=== PATIENT | female | born 1985 | race Caucasian/White ===

== ENCOUNTER 2021-02-27 10:09 | Outpatient (REF) | payer BC, SELFPAY ==
[2021-02-27 15:04] LABS: Influenza A PCR NEGATIVE (Negative); Influenza B PCR NEGATIVE (Negative); Resp Syncy Virus RNA Qual PCR NEGATIVE (Negative); SARS COV2 PCR INHOUSE POSITIVE (Negative)
== END 2021-02-27 10:10 | disposition home or self-care (01) ==
LOC: HO.LAB 10:09
PROVIDERS: Visit Provider Family Medicine
DX: Z20.822 Contact with and (suspected) exposure to COVID-19 (principal)
CPT/HCPCS: 0241U

== ENCOUNTER 2023-03-30 15:43 | Emergency (ER) | payer BC, SELFPAY ==
--- NOTE | 2023-03-30 16:02 | ED.SKABFB ---
HPI - Skin/Abscess/Foreign Bdy General Chief complaint: Skin/Abscess/Foreign Body Stated complaint: rash all over body, itchy Time Seen by Provider: 03/30/23 22:43 Source: patient Mode of arrival: ambulatory History of Present Illness HPI narrative: 38-year-old female presents with concerns regarding a rash that started last Thursday and then notes that she was diagnosed with COVID-19 on Thursday. She otherwise feels fine but states that she is noticed that the rash has extended across her trunk/breast area to include neck and a few areas on her upper extremities. She was seen earlier today and informed that she may have scabies and was given a prescription for permethrin. Related Data Allergies Allergy/AdvReac Type Severity Reaction Status Date / Time cashew nut Allergy Anaphylaxis Verified 03/30/23 16:13 Review of Systems Review of Systems: Pertinent positives and negatives as stated in HPI PMFSH Past Medical History Source: nursing notes reviewed Social History Social History Advance Directives: No Advance Directives Information Provided: No Physical Exam Vital Signs: Vital Signs: Last Vital Signs Temp 97.6 F 03/30/23 16:13 Pulse 72 03/30/23 16:13 Resp 16 03/30/23 16:13 BP 126/65 03/30/23 16:13 Pulse Ox 99 03/30/23 16:13 O2 Del Method Room Air 03/30/23 16:13 BMI result Body Mass Index 33.1 VITAL SIGNS: Reviewed. GENERAL: Well developed, well nourished, in no acute distress. HEAD: Normocephalic/atraumatic EYES: PERRLA, EOMI EARS: Ext canals without abnormality NOSE: Nares patent bilateral OROPHARYNX: no oral lesions noted, posterior pharynx clear NECK: Supple, no adenopathy LUNGS: Normal breath sounds. No adventitious sounds or accessory muscle use. SpO2<99> CARDIOVASCULAR: Regular rate and rhythm without noted murmurs ABDOMEN: Soft, non-tender, non-distended with bowel sounds. MUSCULOSKELETAL: No tenderness, deformities, or effusions noted on gross inspection. EXTREMITIES: No cyanosis, clubbing or edema. SKIN: Inspection of the skin reveals small red/raised, no circumferential erythema, no umbilication, does not appear to be insect induced, minimal involvement bilateral upper extremities NEUROLOGIC: Alert and oriented x 4. Strength and sensation to light touch were grossly intact x 4. Course Course Course Narrative: RME:?38 yo female here for eval of diffuse pruritic body rash x7 days. saw PCP 7 days ago for possible allergic rxn, tested positive for COVID, started on hydoxyzine, benadryl, and hydrocortisone cream. Rash began as a small patch on her abdomen, has persisted, now extending to her breasts and back. Denies fever. Denies travel outside the [place] Up-to-date on all vaccinations. PE: small erythematous papules on torso and upper extremities with ?herald patch to right abdomen. ? Pityriasis rosea labs ordered in triage. Full HPI, ROS and PE to be performed by the primary ED provider. Medical Decision Making Medical Decision Making MDM Narrative: 38-year-old female with history and clinical presentation, DDX: Suspect viral exanthem, findings and progression in consistent with scabies/impetigo/contact dermatitis. I reviewed all investigations and hematologic indices do not demonstrated leukocytosis or left shift, there is no anemia or thrombocytopenia. Chemistry indices do not demonstrate any PRANAY or electrolyte derangements. A tick panel has been sent and should be followed up by the primary care doctor, patient does not provide any history to me to suggest a tick-borne illness. I reassured the patient informed her that it was my interpretation that she had a viral exanthem, she describes minimal pruritus and denies any new exposures. She is otherwise discharged. Differential Diagnosis Differential Diagnoses: The differential diagnosis associated with the presentation includes Please see the discussion above Admission/Observation Consideration of admission/observation: Escalation of care including admission/observation considered Please see the discussion above Lab Data [facility] Lab Attestation statement: I reviewed the patient's lab results. Please see the discussion above 03/30/23 16:32 03/30/23 16:32 Labs: Lab Results 03/30/23 Range/Units 16:32 WBC 4.7 L (4.8-10.8) X10*3/uL RBC 4.11 L (4.20-5.50) X10*6/uL Hgb 12.4 (12.0-16.0) g/dl Hct 36.8 L (37.0-47.0) % MCV 89.5 (80.0-98.0) fL MCH 30.2 (27.0-33.0) pg MCHC 33.7 (31.0-35.0) g/dl RDW 12.2 (11.0-16.0) % Plt Count 237 (160-400) X10*3/uL MPV 10.3 (9.4-12.3) fL Immature Gran % (Auto) 0.2 (0.0-0.4) % Neut % (Auto) 56.9 (45-73) % Lymph % (Auto) 35.9 (20-40) % [place] % (Auto) 5.5 (2-11) % Eos % (Auto) 1.3 (0-4) % Baso % (Auto) 0.2 (0-2) % Lymph # (Auto) 1.7 (1.2-4.9) X10*3/uL [place] # (Auto) 0.3 (0.1-1.2) X10*3/uL Eos # (Auto) 0.1 (0.0-0.4) X10*3/uL Baso # (Auto) 0.0 (0.0-0.2) X10*3/uL Abs Immat Gran (auto) 0.01 (0.00-0.03) X10*3/uL Absolute Neuts (auto) 2.7 (2.0-8.3) x10*3/uL Absolute Nucleated RBC 0.000 (0.0-0.012) X10*3/uL Nucleated RBC % (auto) 0.0 (0.0-0.2) /100WBC Sodium 141 (135-145) mmol/L Potassium 3.7 (3.3-5.1) mmol/L Chloride 107 (96-108) mmol/L Carbon Dioxide 24 (22-29) mmol/L Anion Gap 14 (12-20) BUN 12 (9-16) mg/dL Creatinine 0.70 (0.5-1.4) mg/dL Estim Creat Clear Calc 109.3 Estimated GFR > 60 Random Glucose 128 H (60-115) mg/dL Calcium 9.4 (8.4-10.2) mg/dL Magnesium 2.1 (1.6-2.6) mg/dL Discharge Plan Discharge Clinical Impression: Viral exanthem Patient Disposition: Home, Self-Care Instructions: Viral Exanthem (ED) Additional Instructions: Recommend the continued use of the hydroxyzine at your discretion. Return to the ER if you were to develop significant worsening of the rash with associated itching, fever, chills. Referrals: José Miguel Mcnulty MD [Primary Care Provider] -
[2023-03-30 16:13] VITALS: BP 126/65; PULSE 72; RESP 16; TEMP 36.4; O2SAT 99; BMI 33.1
[2023-03-30 16:36] LABS: MANUAL DIFF FLAG NO
[2023-03-30 16:43] LABS: Basophils Percent Auto 0.2 % (0-2); Eosinophils Absolute Auto 0.1 X10*3/uL (0.0-0.4); Eosinophils Percent Auto 1.3 % (0-4); Hematocrit 36.8 % (37.0-47.0); Hemoglobin 12.4 g/dl (12.0-16.0); Imm Gran Abs Auto 0.01 X10*3/uL (0.00-0.03); Imm Gran Pct Auto 0.2 % (0.0-0.4); Lymphocytes Absolute Auto 1.7 X10*3/uL (1.2-4.9); Lymphocytes Percent Auto 35.9 % (20-40); Mean Corpuscular HGB Conc 33.7 g/dl (31.0-35.0); Mean Corpuscular Hemoglobin 30.2 pg (27.0-33.0); Mean Corpuscular Volume 89.5 fL (80.0-98.0); Mean Platelet Volume 10.3 fL (9.4-12.3); Monocytes Absolute Auto 0.3 X10*3/uL (0.1-1.2); Monocytes Percent Auto 5.5 % (2-11); Neutrophils Absolute Auto 2.7 x10*3/uL (2.0-8.3); Neutrophils Percent Auto 56.9 % (45-73); Platelet Count 237 X10*3/uL (160-400); Red Blood Count 4.11 X10*6/uL (4.20-5.50); Red Cell Distribution Width 12.2 % (11.0-16.0); White Blood Count 4.7 X10*3/uL (4.8-10.8)
[2023-03-30 16:51] LABS: Anion Gap 14 (12-20); Blood Urea Nitrogen 12 mg/dL (9-16); Calcium 9.4 mg/dL (8.4-10.2); Carbon Dioxide 24 mmol/L (22-29); Chloride 107 mmol/L (96-108); Creatinine Clr Calc Pharmacy 109.3; Estimated Glomerular Filt Rate > 60; Glucose Random 128 mg/dL (60-115); Magnesium 2.1 mg/dL (1.6-2.6); Potassium 3.7 mmol/L (3.3-5.1); Sodium 141 mmol/L (135-145)
[2023-04-01 16:23] LABS: Lyme Abs Screen <0.90 index
[2023-04-02 22:48] LABS: A. Phagocytphilium DNA,RT-PCR NOT DETECTED (NOT DETECTED); Babesia Microti DNA, RT-PCR NOT DETECTED (NOT DETECTED); Borrelia Miyamotoi,DNA RT-PCR NOT DETECTED (NOT DETECTED); E.Chaffeensis DNA RT-PCR NOT DETECTED (NOT DETECTED); Lyme(Borrelia ssp)DNA RT-PCR NOT DETECTED (NOT DETECTED)
== END 2023-03-30 23:58 | disposition home or self-care (01) ==
PROVIDERS: Physician Assistant Medical; Emergency Provider Student in an Organized Health Care Education/Training Program; PCP Internal Medicine
DX: B09 Unspecified viral infection characterized by skin and mucous membrane lesions (principal); R21 Rash and other nonspecific skin eruption; Z86.16 Personal history of COVID-19
CPT/HCPCS: 36415; 80048; 83735; 85025; 86617; 86618; 87468; 87469; 87478; 87484; 87798; 99282; 99283

== ENCOUNTER 2024-12-24 15:48 | Emergency (ER) | payer BC, SELFPAY ==
[2024-12-24 16:11] VITALS: BP 128/81; PULSE 79; RESP 18; TEMP 36.3; O2SAT 99; BMI 32.5
--- NOTE | 2024-12-24 16:13 | ED_ITS ---
HPI - Abdominal Pain General Chief Complaint: Abdominal Pain Stated Complaint: abd pain/dizzy on antibiotics for ear infection Time Seen by Provider: 12/24/24 20:58 Source: patient Mode of arrival: ambulatory Limitations: no limitations History of Present Illness ED Provider: Dr. Fanny Leon HPI narrative: Patient comes to the emergency room complaining of dizziness, unsteadiness, more noticeable but some head movements. Patient states that she is currently being treated with clarithromycin for an ear infection, patient is on her last dose. Patient states that she has been having abdominal/gastric irritation, takes ibuprofen to try to alleviate the pain but it only makes it worse. Also patient complaining of a vaginal yeast infection Related Data Previous Rx's ?Medication ?Instructions ?Recorded acetaminophen 500 mg capsule 500 mg PO Q6H PRN fever o r pain 12/24/24 #20 caps meclizine 25 mg tablet 25 mg PO TID PRN dizziness # 14 tabs 12/24/24 miconazole nitrate 200 mg vaginal 200 mg vaginal BEDTI ME 3 days #3 ea 12/24/24 suppository Allergies Allergy/AdvReac Type Severity Reaction Status Date / Time Penicillins Allergy Intermediate Itching Verified 12/24/24 16:15 cashew nut Allergy Anaphylaxis Verified 12/24/24 16:15 Review of Systems Review of Systems Constitutional : No Weight loss, No Fever, No Chills, No Night Sweats, No Fatigue, No Malaise ENT/Mouth : No Hearing loss, improving ear pain with antibiotics No Nasal Congestion, No Sinus Pain, No Hoarseness, No sore throat, No Rhinorrhea, No Swallowing Difficulty Eyes: No Eye Pain, No Swelling, No Redness, No Foreign Body, No Discharge, No Vision Changes Cardiovascular : No Chest Pain, No SOB, No Dyspnea on Exertion, No Orthopnea, No Edema, No Palpitations Respiratory : No Cough, No Sputum, No Wheezing, No Smoke Exposure, No Dyspnea Gastrointestinal : No Nausea, No Vomiting, No Diarrhea, No Constipation, complaining of burning sensation in the abdomen, No abdominal Pain, No Hematochezia, No Melena Genitourinary : Complaining of a yeast infection that started after taking antibiotics, No Dysuria, No Urinary Frequency, No Hematuria, No Urinary Incontinence, No Urgency, No Flank Pain, No Urinary Flow Changes, No Hesitancy Musculoskeletal : No joint pain, No Myalgias, No Joint Swelling Skin : No Skin Lesions, No rash Neuro : No Weakness, No Numbness, No Paresthesias, No Loss of Consciousness, No Dizziness, No Headache Psych : No Anxiety/Panic, No Depression, No SI/HI/AH/VH, No Social Issues, Heme/Lymph: No Bruising, No Bleeding,No Lymphadenopathy Endocrine : No Polyuria, No Polydipsia, No Temperature Intolerance [facility] Past Medical History Medical History (Updated 12/24/24 @ 21:16 by Fanny Leon MD) BPPV (benign paroxysmal positional vertigo) Social History Social History Advance Directives: No Advance Directives Information Provided: Yes Do you have a plan to hurt others: No Plan Physical Exam ED Exam Exam: Appearance: Alert. Oriented X3. No acute distress. Eyes: Pupils equal, round and reactive to light. ENT: Pharynx normal. Neck: Normal inspection. Neck supple. No lymph nodes noted. No crepitus CVS: Normal heart rate and rhythm. Pulses normal. Normal S1 and S2 Respiratory: No respiratory distress. Breath sounds normal. No Wheezing. No rales Abdomen: Soft and nontender. No rigidity. No distention. Skin: Skin warm and dry. Normal skin color. Normal skin turgor. Extremities: No lower extremity edema. No Lacerations. No Rash Neuro: Oriented X 3. No motor deficit. No sensory deficit. Moving all extremities. No slurred speech. CN 2 through 12 grossly intact Psych: calm, cooperative, normal affect Vital Signs: Vital Signs - 24 hr 12/24/24 16:11 Temperature 97.3 F Pulse Rate 79 Respiratory Rate 18 Blood Pressure 128/81 Pulse Oximetry 99 Oxygen Delivery Method Room Air BMI result Body Mass Index 32.5 Course Course Course Narrative: This is a Rapid Medical Exam performed in triage by Maeknzie Bassett PA-C. Full HPI, ROS and PE to be performed by primary ED provider. 39 yo F w/pmhx ear infection currently on Clarithromycin (since Thursday) presenting to the ED c/o myalgias, fatigue, lightheadedness/dizziness, shakiness, & abdominal pain. Admits took COVID & FLU vaccines on Thursday when at . Also reports dysuria and concerned she has a yeast infection PE: NAD, non toxic appearing. Ambulating with steady gait. Nonfocal Plan: EKG, labs, UA, viral testing, orthostatic Medical Decision Making Medical Decision Making [facility] Narrative: My interpretation of EKG: Normal sinus rhythm, heart rate 67, no ST segment depression or elevation, nonspecific T-wave inversion in lead 3, QTC 434 My interpretation of labs: Significant abnormality in patient's hematology or chemistry, normal LFTs and lipase, urinalysis shows yeast in the urine, negative for UTI Patient reports that most of her symptoms started after the urine infection. I discussed with the patient that the antibiotic that she is taking, is causing stomach irritation and the ibuprofen is probably making it worse. Also, I discussed with the patient that it is possible that with a near infection, she is more prone to having dizziness. At this time, the patient denies dizziness. Also, the antibiotic is likely causing the yeast infection. Also, patient yesterday got her flu/COVID shot which patient not reason that patient is having myalgias At this time, patient denies chest pain or shortness of breath, no abdominal pain or irritation. I discussed with the patient that I consent to her pharmacy meclizine p.r.n. dizziness. Also, here in the emergency room patient was given a dose of fluconazole p.o. and topical miconazole was sent to the patient's pharmacy. Patient agrees with plan Differential Diagnosis Differential Diagnoses: The differential diagnosis associated with the presentation includes (Gastritis, gastroenteritis, viral illness, otitis, candidiasis) Lab Data [facility] Lab Attestation statement: I reviewed the patient's lab results. 12/24/24 16:33 12/24/24 16:33 Labs: Lab Results 12/24/24 Range/Units 16:33 WBC 3.6 L (4.8-10.8) X10*3/uL RBC 4.28 (4.20-5.50) X10*6/uL Hgb 12.5 (12.0-16.0) g/dl Hct 37.2 (37.0-47.0) % MCV 86.9 (80.0-98.0) fL MCH 29.2 (27.0-33.0) pg MCHC 33.6 (31.0-35.0) g/dl RDW 12.4 (11.0-16.0) % Plt Count 235 (160-400) X10*3/uL MPV 10.8 (9.4-12.3) fL Immature Gran % (Auto) 0.0 (0.0-0.4) % Neut % (Auto) 49.9 (45-73) % Lymph % (Auto) 41.1 H (20-40) % [place] % (Auto) 7.6 (2-11) % Eos % (Auto) 0.8 (0-4) % Baso % (Auto) 0.6 (0-2) % Lymph # (Auto) 1.5 (1.2-4.9) X10*3/uL [place] # (Auto) 0.3 (0.1-1.2) X10*3/uL Eos # (Auto) 0.0 (0.0-0.4) X10*3/uL Baso # (Auto) 0.0 (0.0-0.2) X10*3/uL Abs Immat Gran (auto) 0.00 (0.00-0.03) X10*3/uL Absolute Neuts (auto) 1.8 L (2.0-8.3) x10*3/uL Absolute Nucleated RBC 0.000 (0.0-0.012) X10*3/uL Nucleated RBC % (auto) 0.0 (0.0-0.2) /100WBC Smear Tech's Comments VERIFIED Sodium 141 (135-145) mmol/L Potassium 3.4 (3.3-5.1) mmol/L Chloride 107 (96-108) mmol/L Carbon Dioxide 26 (22-29) mmol/L Anion Gap 11 L (12-20) BUN 7 L (9-16) mg/dL Creatinine 0.55 (0.5-1.4) mg/dL Estim Creat Clear Calc 136.3 Estimated GFR > 60 Random Glucose 103 (60-115) mg/dL Calcium 9.5 (8.4-10.2) mg/dL Magnesium 2.1 (1.6-2.6) mg/dL Total Bilirubin 0.2 (0.0-1.0) mg/dL Direct Bilirubin < 0.2 (0.0-0.5) mg/dL AST 22 (5-31) U/L ALT 22 (0-31) U/L Alkaline Phosphatase 72 (39-117) U/L Total Protein 7.5 (6.5-8.0) g/dL Albumin 4.8 (3.5-5.0) g/dL Lipase 30 (8-78) U/L Urine Color Yellow Urine Appearance Clear Urine pH 6.5 (5.0-9.0) Ur Specific [place] <= 1.005 (1.005-1.025) Urine Protein Negative (Neg-Trace) mg/dL Urine Glucose (UA) Negative (Negative) mg/dL Urine Ketones Negative (Negative) mg/dL Urine Blood Negative (Negative) Urine Nitrite Negative (Negative) Ur Leukocyte Esterase Small (1+) H (Negative) Urine RBC 0-2 (0-2) /HPF Urine WBC 0-5 (0-5) /HPF Ur Squamous Epith Cells 0-2 (0-2) /HPF Urine Bacteria None Seen (None Seen) Hyaline Casts 0-2 (0-2) /LPF Urine Yeast Present Urine Test NEGATIVE (NEGATIVE) COVID-19 (KELLEY) Negative (Negative) COVID-19 Clin Com See Note Influenza Type A (SRIKANTH) Negative (Negative) Influenza Type B (SRIKANTH) Negative (Negative) Influenza A & B Note See Note Independent Interpretation I performed an independent interpretation of an: EKG Discharge Plan Discharge Clinical Impression: Viral illness, Yeast infection of the vagina, Dizziness Patient Disposition: Home, Self-Care Instructions: Yeast Infection (ED), Viral Syndrome (ED), Dizziness (ED) Additional Instructions: Please follow-up with your primary care physician tomorrow. If you have any worsening or new symptoms, please return to the emergency room or call 911 Prescriptions: New meclizine 25 mg tablet 25 mg PO TID PRN (Reason: dizziness) Qty: 14 0RF miconazole nitrate 200 mg suppository 200 mg vaginal BEDTIME 3 Days Qty: 3 0RF acetaminophen 500 mg capsule 500 mg PO Q6H PRN (Reason: fever or pain) Qty: 20 0RF Stand Alone Forms: Work/School Release Print Language: Kittitian
--- NOTE | 2024-12-24 16:15 | ECG_ITS ---
Test Reason : lightheaded Blood Pressure : */* mmHG Vent. Rate : 77 BPM Atrial Rate : 77 BPM P-R Int : 132 ms QRS Dur : 92 ms QT Int : 384 ms P-R-T Axes : 17 -11 -30 degrees QTcB Int : 434 ms Normal sinus rhythm Minimal voltage criteria for LVH, may be normal variant ( R in aVL ) Nonspecific T wave abnormality Abnormal ECG No previous ECGs available Referred By: Makenzie Bassett Electronically Signed By: DUNG BUSTAMANTE MD
[2024-12-24 16:47] LABS: Appearance Urine Clear; Glucose Urine UA Negative (Negative); PH 6.5 (5.0-9.0); Specific Gravity - Urine <= 1.005 (1.005-1.025); UMIC TRIGGER UACC YES; UPreg QC Valid YES
[2024-12-24 16:55] LABS: Hemoglobin 12.5 g/dl (12.0-16.0); NRBC Abs Auto 0.000 X10*3/uL (0.0-0.012); NRBC Pct Auto 0.0 /100WBC (0.0-0.2); PLT CLUMP 1; SCAN SMEAR FLAG 1
[2024-12-24 16:57] LABS: Hematocrit 37.2 % (37.0-47.0); Imm Gran Abs Auto 0.00 X10*3/uL (0.00-0.03); Imm Gran Pct Auto 0.0 % (0.0-0.4); Lymphocytes Absolute Auto 1.5 X10*3/uL (1.2-4.9); MANUAL DIFF FLAG SCAN; Mean Corpuscular HGB Conc 33.6 g/dl (31.0-35.0); Mean Corpuscular Hemoglobin 29.2 pg (27.0-33.0); Mean Corpuscular Volume 86.9 fL (80.0-98.0); Red Blood Count 4.28 X10*6/uL (4.20-5.50)
[2024-12-24 17:02] LABS: Alanine Aminotransferase 22 U/L (0-31); Albumin Level 4.8 g/dL (3.5-5.0); Alkaline Phosphatase 72 U/L (39-117); Anion Gap 11 (12-20); Aspartate Amino Transferase 22 U/L (5-31); Blood Urea Nitrogen 7 mg/dL (9-16); Calcium 9.5 mg/dL (8.4-10.2); Carbon Dioxide 26 mmol/L (22-29); Chloride 107 mmol/L (96-108); Creatinine Clr Calc Pharmacy 136.3; Estimated Glomerular Filt Rate > 60; Lipase 30 U/L (8-78); Magnesium 2.1 mg/dL (1.6-2.6); Potassium 3.4 mmol/L (3.3-5.1); Sodium 141 mmol/L (135-145); Total Protein 7.5 g/dL (6.5-8.0)
[2024-12-24 17:04] LABS: COVID-19 Test Negative (Negative); IDNOW Serial# 58CA691E
[2024-12-24 17:09] LABS: UACC Culture Trigger YES
[2024-12-24 17:13] LABS: Platelet Count 235 X10*3/uL (160-400); White Blood Count 3.6 X10*3/uL (4.8-10.8)
[2024-12-24 17:19] LABS: IDNOW Serial# 55D5AD1C; Influenza B2 Negative (Negative)
--- OUTSIDE RECORDS SUMMARY | 2024-12-24 19:31 | XMS_ITS ---
Author Name [facility] Organization Unknown Care Team Organization Name Specialty Phone Email Start Date End Da te [facility]CO 10/19/2024 [facility] 09/04/2022 10/19/2023 [facility] Primary [facility] 08/08/2022 10/19/19 24 [facility] Primary [facility] 01/07/2022 024
--- OUTSIDE RECORDS SUMMARY | 2024-12-24 19:31 | XMS_ITS | Clinical Summary ---
Author Organization [address] Address [address] [place] [address] Phone Care Team Providers Care Kitman Name Role Phone José Miguel Mcnulty MD Primary Care Provider Allergies Active Allergy Reactions Criticality Noted Date Comments Amoxicillin-Pot Clavulanate Hives 01/02/20 Cashew Nut Itching High 07/11/2015 Penicillins 11/24/2023 Medications No known medications Active Problems Problem Noted Date Diagnosed Date Herpes genitalia 06/11/2023 Overview (02/19/2024): 06/2023- pos for Type 2 culture COVID 03/24/2023 Nonintractable headache 03/31/2018 Sprain of lumbosacral joint or ligament 03/31/19 19 Sprain of sacroiliac ligament 03/31/2018 Migraine 12/12/2013 Encounters Date Type Department Care Team Description 10/07/2024 7:30 AM EDT Office Visit Adult Medicine [address] [phone] China Martinez PA Fatigue, unspecified type (Primary Dx); Vitamin D deficiency 10/06/2024 Telephone Adult Medicine [address] [phone] José Miguel Mcnulty MD from Last 3 Months Immunizations Immunization Administration Dates Next Due HPV, Quadrivalent 08/13/2012 Influenza Quadravalent, MDCK , 0.5ml, preservative free (Flucelvax) 6mo and older 03/03/2023 Influenza Quadravalent, MDCK , 0.5ml, with preservative (Flucelvax) 6mo and older 11/24/2017 Influenza Quadrivalent, 0.5m l, preservative free (Fluarix; FluLaval; Fluzone) ages 6mo and older (Afluria) 3yo and older 04/04/2021,02/17/2020 Influenza trivalent, 0.5mL ( Fluzone High-dose) 65yo and older 01/08/2022 Influenza trivalent, with preservative (Fluzone; Afluria) 6mo and older 04/21/2016,12/28/2014,12/12/2013,2012,11/07/2011 PPD Test 12/09/2017, 7,01/02/2016,2014,12/28/2014 Tdap Tetanus diptheria acell ular pertussis (Boostrix; Adacel) 7yo and older 04/14/2018,10/07/2011 Surgical History Surgery Date Site/Laterality Comments OTHER SURGICAL HISTORY PROCEDURE: ---- OTHER ----; COMMENT: historical D&C for miscarriage SECTION PROCEDURE: HISTORICAL DELIVERY Medical History Medical History Date Comments Migraine without aura DX:Migrain e without aura Rubella non-immune status, antepartum 11/20/2017 DX:Rubella non-immune status, antepartum; COMMENT: 11/20/2017 - offer vaccine Herpes simplex of female genitalia 06/05/2023 DX:Herpes simplex of female genitalia; COMMENT: initial outbreak- Treated Family History Medical History Relation Name Comments Diabetes Father HTN Mental illness Maternal Grandfather no co ntact No Known Problems Maternal Grandmother Seizures Mother benign brain tu mor, anxiety/depression w/psychosis, migraines, hypotension No Known Problems Paternal Grandfather Alzheimer's disease Paternal Grandmother Learning disabilities Sister autism , anxiety/depression No Known Problems Son 1 Xahrieo No Known Problems Son 2 Bizhaben Prostate cancer Uncle maternal kaylah e Autoimmune disease Neg Hx Breast cancer Neg Hx Colon cancer Neg Hx Coronary artery disease Neg Hx Heart attack Neg Hx Heart failure Neg Hx Hyperlipidemia Neg Hx Ovarian cancer Neg Hx Pancreatic cancer Neg Hx Sleep apnea Neg Hx Thyroid disease Neg Hx Uterine cancer Neg Hx Relation Name Status Comments Father Alive Maternal Grandfather Alive Maternal Grandmother Mother Alive Paternal Grandfather Paternal Grandmother Sister Alive Son 1 Xahrieo Alive Son 2 Bibriahaben Alive Uncle Social History Tobacco Use Types Packs/Day Years Used Date Smoking Tobacco: Never Smokeless Tobacco: Never Tobacco Cessation:Counseling Given: Not Answered Alcohol Use Standard Drinks/Week Comments Yes 0 (1 standard drink = 0.6 oz pur e alcohol) Housing Instability Answer Date Recorde d Are you worried that in the next 2 months you may not have stable housing? No 10/07/2024 Food Access & Nutrition Answer Date Rec orded Do you have access to a vari ety of food including fruits and vegetables? Yes 10/07/2024 Health Literacy Answer Date Recorded How often do you need to hav e someone help you when you read instructions, pamphlets, or other written material from your doctor or pharmacy? Never 10/07/2024 Caregiver: How often do you need to have someone help you when you read instructions, pamphlets, or other written material from your doctor or pharmacy? Not on file 10/07/2024 Financial Risk Answer Date Recorded How hard is it for you to pa y for the very basics like food, housing, medical care, and air conditioning / heating? Not very hard 10/07/2024 Transportation Answer Date Recorded Has the lack of transportati on kept you from meetings, work, or from getting things needed for daily living? No Has the lack of transportati on kept you from medical appointments or from getting medications? No 10/07/2024 Social Isolation Answer Date Recorded How often do you feel lonely or isolated from th ose around you? Never 10/07/2024 Food Risk Answer Date Recorded Within the past 12 months we worried whether our food would run out before we got money to buy more. Never true 10/07/2024 Within the past 12 months th e food we bought just didn't last and we didn't have money to get more. Never true 10/07/2024 Dependent Care Answer Date Recorded Do you need help finding or paying for care for your loved ones. For example, child specialist or elderly care for an older adult? No 10/07/2024 Education Answer Date Recorded Do you think completing more education or training, like finishing a GED, going to college, or learning a trade, would be helpful for you? No 10/07/2024 Employment and Income Answer Date Recor ded During the last four weeks, have you been actively looking for work? No 10/07/2024 Living Situation Answer Date Recorded What is your living situation? Unrecognized valu e 10/07/2024 Comments No Sex and Gender Information Value Date Recorded Sex Assigned at Not on file Legal Sex Female 5:21 PM EST Gender Identity Not on file Sexual Orientation Not on file Obstetrics History * This document contains information received from the source organization and may not represent a complete record from that organization. Para Term AB IAB SAB Ectopic Multiple Livin g Live Births 5 2 2 1 2 2 Date Outcome GA Total Labor Labor/2nd/3rd Weight Sex Type Anes PTL Alla A1 A5 Name Clin 2004 2006 Term 40w 0d 3430 g (121 oz) M Vag-S pont Livin g Dizhab en Complications:None Delivery Location:[facility] Comments:FOB#1 2014 Ectopic Decea sed Comments:tubal pregnan cy while on OCPs, she got MTX, no surgery Partner #2 8 2018 Term 40w 1d 3856 g (136 oz) M CS-LT ranv Epidu ral,S hemalatha N Livin g 8 9 Sadaf ellis DO Complications:Failure to Pro jose in Second Stage,Asynclitism Delivery Location:[facility] Comments:SROM >24hr; F TP in 2nd stage (only got to 4cm), asynclitic lie (ear presenting). Last Filed Vital Signs Vital Sign Reading Time Taken Comments Blood Pressure 95/65 10/07/2024 7:28 AM EDT Pulse 70 10/07/2024 7:28 AM EDT Temperature 36.1 C (97 F) 10/07/2024 7:28 AM EDT Respiratory Rate 12 10/07/2024 7:28 AM EDT Oxygen Saturation 97% 10/07/2024 7:28 AM EDT Inhaled Oxygen Concentration - - Weight 82.1 kg (181 lb) 10/07/2024 7:28 AM EDT Height 157.5 cm (5' 2 ) 10/07/2024 7:28 AM EDT Body Mass Index 33.11 10/07/2024 7:28 AM EDT Plan of Treatment Health Maintenance Due Date Last Done Comments Hepatitis B Vaccines (1 of 3 - 19+ 3-dose series) 2005 HPV Vaccines (2 - 3-dose series) 09/10/2012 08/13/2012 Influenza Vaccine (#1) 2024 , 03/03/2023, 01/08/2022, Additional history exists Social Influencers of Health Screening 10/07/2025 10/07/2024 Cervical Cancer Screening: HPV 04/17/2027 04/17/2022 Cholesterol Screening (Lipid Panel) 03/06/2028 03/06/2023 DTaP,Tdap,and Td Vaccines (3 - Td or Tdap) 04/14/2028 04/14/2018, 10/07/2011 RSV Immunization Adult Patients (1 - 1-dose 75+ series) 2061 HIV Screening Completed 06/05/2023 Hepatitis C Screening Completed 06/05/2023 COVID-19 Vaccine Completed 12/10/2023, 04/2021, 06/20/2020, Additional history exists Depression Screening Completed 10/07/2024 HIB Vaccines Aged Out No longer eligi ble based on patient's age to complete this topic Hepatitis A Vaccines Aged Out No long er eligible based on patient's age to complete this topic IPV Vaccines Aged Out No longer eligi ble based on patient's age to complete this topic MMR Vaccines Aged Out No longer eligi ble based on patient's age to complete this topic Meningococcal ACWY Vaccine Aged Out N o longer eligible based on patient's age to complete this topic Meningococcal B Vaccine Aged Out No l onger eligible based on patient's age to complete this topic Pneumococcal Vaccine: Pediatrics (0 to 5 Years) and At-Risk Patients (6 to 49 Years) Aged Out No longer eligible based on patient's age to complete this topic RSV Immunization Patients Under 20 months Aged Out No longer eligible based on patient's age to complete this topic Varicella Vaccines Aged Out No longer eligible based on patient's age to complete this topic Procedures Procedure Name Priority Date/Time Associated Diagnosis Comments CBC WITH AUTO DIFFERENTIAL Routine 10/07/2024 8:45 AM EDT Fatigue, unspecified type THYROID STIMULATING HORMONE WITH REFLEX TO FREE T4 AND FREE T3 Routine 10/07/2024 8:45 AM EDT Fatigue, unspecified type FERRITIN Routine 10/07/2024 8:45 AM EDT Fatigue, unspecified type FOLATE Routine 10/07/2024 8:45 AM EDT Fatigue, unspecified type IRON AND TIBC Routine 10/07/2024 8:45 AM EDT Fatigue, unspecified type VITAMIN B12 Routine 10/07/2024 8:45 AM EDT Fatigue, unspecified type VITAMIN D 25 HYDROXY Routine 10/07/2024 8:45 AM EDT Fatigue, unspecified type Vitamin D deficiency COMPREHENSIVE METABOLIC PANEL Routine 10/07/2024 8:45 AM EDT Fatigue, unspecified type CBC AND DIFFERENTIAL Routine 10/07/2024 8:45 AM EDT Fatigue, unspecified type POC RAPID [id number], MOLECULAR Routine 10/07/2024 8:05 AM EDT Fatigue, unspecified type POC INFLUENZA A/B Routine 10/07/2024 8:0 5 AM EDT Fatigue, unspecified type HEPATITIS C SCREENING Routine 06/05/2023 HIV SCREENING Routine 06/05/2023 LIPID PANEL Routine 03/06/2023 HPV Routine 04/17/2022 from Last 3 Months or Most Recently Relevant to Health Maintenance Results * Thyroid stimulating hormone with reflex to free t4 and free t3 (10/07/2024 8:45 AM EDT) TSH 1.46 0.40 - 4.00 mcIU/mL LAB CHEMISTRY METHOD 10/07/2024 1:28 PM EDT [facility] Blood Venous blood specimen / Unknown Venipuncture / Unknown 10/07/2024 8:45 AM EDT 10/07/2024 8:45 AM EDT us China Juan PA LAB BLOOD ORDERABLES Final Resul t [facility] [address] [place] [address], [place] [phone] * (ABNORMAL) CBC auto differential (10/07/2024 8:45 AM EDT) WBC 2.9(L) 4.8 - 10.8 K/mcL LAB HEMETOLOGY METHOD 10/07/2024 11:11 AM EDT [facility] RBC 4.20 3.80 - 4.80 M/mcL LAB HEMETOLOGY METHOD [facility] Hemoglobin 12.0 11.5 - 16.0 g/dL LAB HEMETOLOGY METHOD 10/07[facility]2024 [facility] Hematocrit 36.9 35.0 - 47.0 % LAB HEMETOLOGY METHOD 10/07/2024 11:[facility] MCV 88.9 79.0 - 98.0 FL LAB HEMETOLOGY METHOD 10/07/2024 11:[facility] MCH 28.9 27.0 - 32.0 pcg LAB HEMETOLOGY METHOD 10/07/2024 [facility] MCHC 32.5 32.0 - 37.0 g/dL LAB HEMETOLOGY METHOD 10/07/2024 11:11 AM [facility] RDW 12.3 11.0 - 15.0 % LAB HEMETOLOGY METHOD 10/07/2024 11:11 AM [facility] Platelets 261 130 - 400 K/mcL LAB HEMETOLOGY METHOD 10/07/2024 11:11 AM [facility] MPV 11.1(H) 7.0 - 11.0 FL LAB HEMETOLOGY METHOD 10/07/2024 11:11 AM [facility] NRBC 0.0 <1.0 % LAB HEMETOLOGY METHOD 10/07/2024 11:11 AM [facility] NRBC Absolute 0.00 <0.10 K/mcL LAB HEMETOLOGY METHOD 10/07/2024 11:11 AM [facility] Neutrophils Relative 41.4 % LAB HEMETOLOGY METHOD 10/07/2024 11:11 AM [facility] Lymphocytes Relative 45.9 % LAB HEMETOLOGY METHOD 10/07/2024 11:11 AM [facility] Monocytes Relative 10.3 % LAB HEMETOLOGY METHOD 10/07/2024 11:11 AM [facility] Eosinophils Relative 1.4 % LAB HEMETOLOGY METHOD 10/07/2024 11:11 AM [facility] Basophils Relative 0.7 % LAB HEMETOLOGY METHOD 10/07/2024 11:11 AM [facility] Immature Granulocytes Relative 0.3 % LAB HEMETOLOGY METHOD 10/07/2024 11:11 AM [facility] Neutrophils Absolute 1.20(L) 1.50 - 7.00 K/mcL LAB HEMETOLOGY METHOD 10/07/2024 11:11 AM [facility] Lymphocytes Absolute 1.33 1.00 - 5.00 K/mcL LAB HEMETOLOGY METHOD 10/07/2024 11:11 AM [facility] Monocytes Absolute 0.30 0.20 - 1.00 K/mcL LAB HEMETOLOGY METHOD 10/07/2024 11:11 AM EDT [facility] Eosinophils Absolute 0.04 0.00 - 0.50 K/[facility] LAB HEMETOLOGY METHOD 10/07/2024 11:11 AM EDT [facility] Basophils Absolute 0.02 0.00 - 0.20 K/[facility] LAB HEMETOLOGY METHOD 10/07/2024 11:11 AM EDT [facility] Immature Granulocytes Absolute 0.01 0.00 - 0.03 K/[facility] LAB HEMETOLOGY METHOD 10/07/2024 11:11 AM EDT [facility] Blood Venous blood specimen / Unknown Venipuncture / Unknown 10/07/2024 8:45 AM EDT 10/07/2024 8:45 AM EDT us China Martinez PA LAB BLOOD ORDERABLES Final Resul t Performing Organization Address City/[facility] Co de Phone Number [facility] [address] [place] [address], [place] [phone] * Iron and TIBC (10/07/2024 8:45 AM EDT) Iron 110 40 - 150 mcg/dL LAB CHEMISTRY METHOD 10/07/2024 12:06 PM EDT [facility] TIBC 300 250 - 450 mcg/dL LAB CHEMISTRY METHOD 10/07/2024 12:06 PM EDT [facility] Iron Saturation 37 15 - 50 % LAB CHEMISTRY METHOD 10/07/2024 12:06 PM EDT [facility] Blood Venous blood specimen / Unknown Venipuncture / Unknown 10/07/2024 8:45 AM EDT 10/07/2024 8:45 AM EDT us China Martinez PA LAB BLOOD ORDERABLES Final Resul t Performing Organization Address City/[facility]/ZIP Co de Phone Number [facility] [address] [place] [address], [place] [phone] * (ABNORMAL) Vitamin D 25 hydroxy (10/07/2024 8:45 AM EDT) [facility] Vit D, 25-Hydroxy 23.7(L) 30.0 - 80.0 ng/mL LAB CHEMISTRY METHOD 10/07/2024 1:28 PM EDT [facility] Blood Venous blood specimen / Unknown Venipuncture / Unknown 10/07/2024 8:45 AM EDT 10/07/2024 8:45 AM EDT us China EASLEY LAB BLOOD ORDERABLES Final Resul t Performing Organization Address City/[facility]/ZIP Co de Phone Number [facility] [address] [place] [address], [place] [phone] * (ABNORMAL) Folate (10/07/2024 8:45 AM EDT) [facility] Folate >20.0(H) 2.8 - 17.0 ng/ml LAB CHEMISTRY METHOD 10/07/2024 12:06 PM EDT [facility] Blood Venous blood specimen / Unknown Venipuncture / Unknown 10/07/2024 8:45 AM EDT 10/07/2024 8:45 AM EDT us China EASLEY LAB BLOOD ORDERABLES Final Resul t [facility] [address] [place] [address], [place] [phone] * Ferritin (10/07/2024 8:45 AM EDT) [facility] Ferritin 60 8 - 252 ng/mL LAB CHEMISTRY METHOD 10/07/2024 12:06 PM EDT [facility] Blood Venous blood specimen / Unknown Venipuncture / Unknown 10/07/2024 8:45 AM EDT 10/07/2024 8:45 AM EDT us China Martinez PA LAB BLOOD ORDERABLES Final Resul t Performing Organization Address City/[facility]/ZIP Co de Phone Number [facility] [address] [place] [address], [place] [phone] * Vitamin B12 (10/07/2024 8:45 AM EDT) Pathologist [facility] Vitamin B-12 579 250 - 900 pcg/mL LAB CHEMISTRY METHOD 10/07/2024 1:10 PM EDT [facility] Blood Venous blood specimen / Unknown Venipuncture / Unknown 10/07/2024 8:45 AM EDT 10/07/2024 8:45 AM EDT us China Juan PA LAB BLOOD ORDERABLES Final Resul t Performing Organization Address [facility] Co de Phone Number [facility] [address] [place] [address], [place] [phone] * Comprehensive metabolic panel (10/07/2024 8:45 AM EDT) [facility] Sodium 141 133 - 145 mmol/L LAB CHEMISTRY METHOD 10/07/2024 12:06 PM EDT [facility] Potassium 4.2 3.5 - 5.5 mmol/L LAB CHEMISTRY METHOD 10/07/2024 12:06 PM EDT [facility] Chloride 106 96 - 110 mmol/L LAB CHEMISTRY METHOD 10/07/2024 12:06 PM EDT [facility] CO2 26 21 - 32 mmol/L LAB CHEMISTRY METHOD 10/07/2024 12:06 PM T [facility] Anion Gap 9 3 - 11 LAB CHEMISTRY METHOD 10/07/2024 12:06 PM [facility] Glucose 88 70 - 100 mg/dL LAB CHEMISTRY METHOD 10/07/2024 12:06 PM EDT [facility] BUN 15 5 - 25 mg/dL LAB CHEMISTRY METHOD 10/07/2024 12:06 PM [facility] Creatinine 0.64 0.50 - 1.10 mg/dL LAB CHEMISTRY METHOD 10/07/2024 12:06 PM [facility] eGFR 116 >=60 mL/min/1. 73m2 LAB CHEMISTRY METHOD 10/07/2024 12:06 PM [facility] Comment:Calculation based on the Chronic Kidney Disease Epidemiology Collaboration (CKD-EPI) equation refit without adjustment for race. BUN/Creatinine Ratio 23.4 LAB CHEMISTRY METHOD 10/07/2024 12:06 PM [facility] Calcium 9.2 8.5 - 10.5 mg/dL LAB CHEMISTRY METHOD 10/07/2024 12:06 PM [facility] AST (SGOT) 22 10 - 42 unit/L LAB CHEMISTRY METHOD 10/07/2024 12:06 PM [facility] ALT (SGPT) 32 10 - 60 unit/L LAB CHEMISTRY METHOD 10/07/2024 12:06 PM [facility] Alkaline Phosphatase 65 42 - 121 unit/L LAB CHEMISTRY METHOD 10/07/2024 12:06 PM [facility] Total Protein 6.9 6.0 - 8.0 g/dL LAB CHEMISTRY METHOD 10/07/2024 12:06 PM [facility] Albumin 3.9 3.2 - 5.0 g/dL LAB CHEMISTRY METHOD 10/07/2024 12:06 PM [facility] Total Bilirubin 0.5 0.0 - 1.4 mg/dL LAB CHEMISTRY METHOD 10/07/2024 12:06 PM [facility] Blood Venous blood specimen / Unknown Venipuncture / Unknown 10/07/2024 8:45 AM EDT 10/07/2024 8:45 AM EDT us China Martinez PA LAB BLOOD ORDERABLES Final Resul t [facility]) [facility] [address] [place] [address], [place] [phone] * Poc Rapid [id number], MOLECULAR (10/07/2024 8:05 AM EDT) [facility] COVID-19/SARS- COV-2 Rapid POC Negative Negative Internal Control Pass Yes Yes Swab Nasopharyngeal structure / Unknown 10/07/2024 8:05 AM EDT us China Martinez PA POINT OF CARE TEST ENTER/EDIT OR DERABLES Final Result * (ABNORMAL) POC Influenza A/B manually resulted (10/07/2024 8:05 AM EDT) [facility] Rapid Influenza A AGN POC Negative Negative Rapid Influenza B AGN POC Negative Negative Internal Control Pass Yes Yes Swab 10/07/2024 8:05 AM EDT us China Martinez PA POINT OF CARE TEST ENTER/EDIT OR DERABLES Edited Result - Final * HIV Screening (06/05/2023) [facility] HIV Screening abstracted Result [facility] Historical Provider HEALTH MAINTENANCE Final Result * Hepatitis C Screening (06/05/2023) [facility] Hepatitis C Screening abstracted Historical Provider HEALTH MAINTENANCE Final Result * (ABNORMAL) Lipid panel (03/06/2023) [facility] LDL/HDL Ratio 4 0 - 4 Triglycerides 126 0 - 150 mg/dL Cholesterol 184 0 - 200 mg/dL HDL 51 >=40 mg/dL LDL Cholesterol 108(A) 0 - 100 mg/dL Blood Venous blood specimen / Unknown Result [facility] Historical Provider LAB BLOOD ORDERABLES Parvin l Result * Cervical Cancer Screening: HPV (04/17/2022) Cervical Cancer Screening: HPV Abstracted ,negative us Historical Provider HEALTH MAINTENANCE Final Result from Last 3 Months or Most Recently Relevant to Health Maintenance Insurance [employer] [place] Care Teams Kitman Relationship Specialty Start Date End Date José Miguel Mcnulty MD [address] [place] [id number] PCP - General 01/06/22
[2024-12-24 21:40] VITALS: BP 0/0; PULSE 0; RESP 16; TEMP -17.7; TEMP 0; O2SAT 0
--- NOTE | 2024-12-24 21:40 | PC.NURSE ---
Pt refusing discharge vitals, states she has a friend who has been waiting to give her a ride to her car for the last hour, does not want to further delay.
[2024-12-24 21:42] VITALS: BP 0/0; PULSE 0; RESP 16; TEMP -17.7; TEMP 0; O2SAT 0
== END 2024-12-24 21:43 | disposition home or self-care (01) ==
PROVIDERS: Physician Assistant; Emergency Provider Emergency Medicine; PCP Internal Medicine
DX: R42 Dizziness and giddiness (principal); B34.9 Viral infection, unspecified; B37.31 Acute candidiasis of vulva and vagina; Z03.818 Encounter for observation for suspected exposure to other biological agents ruled out
CPT/HCPCS: 36415; 80048; 80076; 81001; 81025; 83690; 83735; 85025; 87086; 87147; 87502; 87635; 93005; 99284

== ENCOUNTER → 2024-12-24 16:15 | Outpatient (BNV) | payer BC, SELFPAY | PROVIDERS: Emergency Provider Emergency Medicine; PCP Internal Medicine; Visit Provider Internal Medicine Cardiovascular Disease | DX: R94.31 Abnormal electrocardiogram [ECG] [EKG] (principal); R42 Dizziness and giddiness | CPT/HCPCS: 93010 ==